=== PATIENT | male | born 1985 | race Caucasian/White ===

== ENCOUNTER → 2017-03-11 | Outpatient (CLI) | payer OTHER ==
--- NOTE | 2017-03-10 14:00 | NUR ---
ALCOHOL/DRUG TEST AND EVALUATION 2 HRS: Clt is present for this evaluation. See written eval for test results and recommendations.
--- NOTE | 2017-03-11 15:28 | NUR ---
ALCOHOL/DRUG TEST AND EVALUATION 2 HRS: Clt is present for this evaluation. See written eval for test results and recommendations.
--- NOTE | 2017-03-18 11:40 | CDE ---
ADMIT: 03/11/2017 RM/LOC: [facility] MR#: [id number] [facility] [address] [place], [place] [address] CAROLINA HERRERA [address] [place] [address] Chemical Dependency Evaluation SEX: M AGE: 31 : 1985 A. DEMOGRAPHICS: NAME: Carolina Herrera DATE OF : 1985 EVALUATING COUNSELOR: QUIN Watters LADC DATE OF EVALUATION: 03/11/2017 B. PRESENTING PROBLEM/CHIEF COMPLAINT: Client reported he was charged with a DUI second offense and was directed, by the [facility], to have this eval completed. He has sentencing on 03/20/2017. C. MEDICAL HISTORY: Client denies any illnesses, accidents, injuries, or operations and has no other health concerns at this time. He is not under a doctor's care. D. WORK/SCHOOL/ HISTORY: Client reported he did get his GED. He stated he got into trouble in school, for smoking marijuana. He is currently unemployed and it has been approximately 2 weeks since he last worked. He denies any . E. ALCOHOL/DRUG ASSESSMENT SUMMARY: ALCOHOL: Age of first use for alcohol was 16. Carolina reported in his 20s, he was drinking at the bars on a regular basis. Most recently, he has been drinking up to a 12 pack on the weekends. His date of last use was 02/24/2017. MARIJUANA: Age of first use was 13. He stated he is an every day smoker and has always been an every day smoker, until the times he did try to stop due to legal reasons or treatment reasons. His date of last use was 02/28/2017. COCAINE: No use reported. METHAMPHETAMINES: Age of first use was 25. He stated he is an occasional user, generally it is after he is drinking and it takes place approximately every couple of months. He stated he usually uses one night after he gets drunk and the effects of it last for up to three days, and then has to take a day to detox. He does not remember when the last day of use was. HALLUCINOGENS: He stated he tried mushrooms one time and it scared him and he did not do it again. He did not remember how old he was. HEROIN: No use reported. PRESCRIPTION DRUGS: He did not know what age he was when he first started using any of those. He stated he got into trouble for possession of Klonopin, and he did remember on one occasion eating five of them and snorted five of them all in one night. That was back in 2011. He stated primarilly, he stole them and traded them for marijuana. OTHER DRUGS (INHALANTS, OVER THE COUNTER, ETC): No use reported. NICOTINE: Age of first use was 13. He smoked about a half a pack a day. ADMIT: 03/11/2017 RM/LOC: [facility] MR#: [id number] [address] CAROLINA HERRERA [address] [place] [address] Chemical Dependency Evaluation SEX: M AGE: 31 : 1985 Negative consequences include: He is not home, stays out drinking, he has lost jobs due to hangovers, and he has had legal problems. F. LEGAL HISTORY: Client reported he has had several charges of possession of marijuana and has been fined for them. He had two counts of possession of a controlled substance and was placed on probation. He also has gone to alf on a theft charge. He did not give me a date on any of those. He stated he was charged with DUI first offense and was put on probation to the court for 9 months and fined, and on November he was charged with DUI second offence. His LAQUITA was 0.14 and his sentencing is on the . G. FAMILY/SOCIAL/PEER HISTORY: Client reported his parents are . He primarily lived with his dad and smoked marijuana with his dad, only visiting his mom. He stated at 16, he moved back in with his mom and his relationship is good with her. He advised he still speaks with his stepmother he had growing up but he does not see his dad or his new step mother much at all. He has been for three years. He stated he has a 13-year-old child he does not see, a 10-year-old child he sees every other weekend, and he and his have a 3-year-old son. Carolina reported he does not prefer to associate with people who drink or use as opposed to those do not. However,the majority of his friends are users. He likes to spend time with his family, and going hunting and fishing. H. PSYCHIATRIC/BEHAVIORAL HISTORY: He denies ever being suicidal or receiving any inpatient or outpatient treatment for mental health. He did report he went to treatment here, in 2012, and he completed the program. He was recommend to go to the [facility] but did not make it there. I. COLLATERAL INFORMATION: I did not call anyone for collateral information. THE DRINKER TYPE RATING: Is a measure of how the client perceives their own drinking and/or using. This rating is indicative of how resistant or accepting the person is to the drinking problem. The client chose their rating from the following classifications: ADMIT: 03/11/2017 RM/LOC: [facility] MR#: [id number] [address] CAROLINA HERRERA [address] [place] [address] Chemical Dependency Evaluation SEX: M AGE: 31 : 1985 ALCOHOL Total Abstainer Light Social (non-problem) Drinker Moderate Social (non-problem) Drinker User Heavy Social (non-problem)Drinker Problem Drinker Alcoholic OTHER DRUG Nonuser Light Social (non-problem) User Moderate Social (non-problem) User Heavy Social (non-problem) User Problem User Addicted/Dependent Client circled a moderate social nonproblem drinker and a moderate social nonproblem user of other drugs. SUBSTANCE ABUSE SUBTLE SCREENING INVENTORY (SASSI): The SASSI is an assessment tool specifically designed to provide a clearer picture of what lies beneath the facade presented by most patients or clients. Scores on this assessment aid in distinguishing nonabusers from abusers, alcoholics from drug abusers and nondefensive clients from defensive ones. The incorporation of a "denial scale" further enhances the ability to make an accurate recommendation. His SASSI scores are as follows: Face Valid Alcohol (FVA): 6. Face Valid Other Drugs (FVOD): 11. Symptoms (SYM): 8. Obvious Attributes (OAT): 4. Subtle Attributes (SAT): 4. Defensiveness (DEF): 10. Supplemental Addiction Measure (LESLIE): 10. Family versus Controls (FAM): 9. Correctional (COR): 8. Random Answering Pattern (RAP): 0. These scores would indicate that he has a high probability of having a substance dependence disorder. We administered the ASI. Please see attached summary sheet. ADMIT: 03/11/2017 RM/LOC: [facility] MR#: [id number] [address] CAROLINA HERRERA [address] [place] [address] Chemical Dependency Evaluation SEX: M AGE: 31 : 1985 K. CLINICAL IMPRESSION: Client appeared alert and ready to have this evaluation completed. He did state he had some past trauma when he lost a loved one, and he also stated he has been to treatment in the past. His DSM diagnosis is: 1. F10.20, alcohol use disorder, severe. 2. F12.20, marijuana use disorder, severe. Criteria showing both of these as severe are: Alcohol and marijuana were both taken in larger amounts or over a longer period of time than was intended; he had a persistent desire or unsuccessful effort to cut down or control his use when he attempted treatment and was on probation; craving or strong desire to use or urge to use; recurrent alcohol use resulting in a failure to fulfill major role obligations at work, school, or home; important social, occupational, and recreational activities were given up or reduced because of alcohol and marijuana; and tolerance. Additional diagnoses for him are: 3. Z55.9, problems related to education. 4. Z56.0, unemployment. 5. Z59.6, low income. 6. Z63.0, problems in relationship with spouse. 7. Z63.72, alcoholism or addiction in the family. 8. Z65.3, problems related to other legal circumstances. 9. Z72.0, tobacco use. L. RECOMMENDATIONS PRESENTED TO CLIENT: It is recommended that he participate in an intensive outpatient treatment program; that he continue to abstain from all drugs or alcohol; that he begin attending AA or NA meetings on a regular basis, as well as to get and call a sponsor, and seek full-time employment. If he is unable to fulfill any or all of those recommendations, a higher level of care will be recommended, to follow with a sober living environment. CLIENT/FAMILY RESPONSE: He is in agreement of this. ADMIT: 03/11/2017 RM/LOC: [facility] MR#: [id number] [address] CAROLINA HERRERA [address] [place] [address] Chemical Dependency Evaluation SEX: M AGE: 31 : 1985 ASAM CLINICAL ASSESSMENT CRITERIA: Low/Medium/High Dimension 1 = Intoxication and Withdrawal (i.e. history of withdrawal, level of current use): Low. Dimension 2 = Medical (i.e. , diabetes, medications, chronic conditions): Low. Dimension 3 = Emotional/Behavior Conditions (i.e. psych history, impulsivity, depression, anxiety, trauma history): Medium. Dimension 4 = Treatment Acceptance/Resistance (i.e. past history, minimization/blame, acknowledgement of problem, pressure to seek treatment, does not feel they have a problem): Medium. Dimension 5 = Relapse Potential (i.e. inability to abstain, use despite consequences, significant preoccupation, relapse despite outpatient treatment attempts): High. Dimension 6 = Recovery/Living Environment (i.e. current users reside in environment, family attitude, lack of consistent adult support in living environment, high exposure to using in social/work environment): High. CRIMINOGENIC RISK FACTORS: Low/Moderate/High Antisocial Attitudes: Low. Antisocial Peers: Low. Self Control Skills: High. Family Dysfunction: Moderate. Past Criminality: Moderate. QUIN Watters LADC/ dom JOB #: [id number] CC:
== END | disposition home or self-care (01) ==
LOC: ADTC.GI 12:45
DX: F10.20 Alcohol dependence, uncomplicated (principal)